=== PATIENT | male | born 1985 ===

== ENCOUNTER 2024-06-08 10:43 | Outpatient (AMB) | payer OTHER, SELFPAY ==
--- NOTE | 2024-06-08 12:27 | AM.OFFWIN_ITS ---
Intake Vital Signs 06/08/24 12:28 BMI Reason not done Patient refused/unable BP 122/76 Blood Pressure Location Lt brachial Position Sitting Pulse 70 Pulse Source Pulse Oximeter Temp 97.6 F Temp Source Oral Pulse Oximetry (%) 99 Intake Visit Reasons: [employer]IVE back pain (no [place]) Patient Tobacco Use Status: Never used Tobacco Allergies No Known Allergies Allergy (Verified 06/08/24 12:28) Do you need a note to return to daycare/school/sports/work: No HPI HPI Comments History of Present Illness Details 38 y/o male patient who presents to the walk in clinic with c/o Neck pain x 3 days. 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 Denies numbness or tingling. [facility] Medical History (Updated 06/08/24 @ 12:50 by Mary Jane Hui NP) Cervicalgia Social History Patient Tobacco Use Status: Never used Tobacco Review of Systems Const All systems reviewed & are unremarkable except as noted in HPI and below Physical Exam Vital Signs: Last Vital Signs Temp 97.6 F 06/08/24 12:28 Pulse 70 06/08/24 12:28 BP 122/76 06/08/24 12:28 Pulse Ox 99 06/08/24 12:28 Const General: cooperative and no acute distress Nutritional Appearance: well nourished Orientation/consciousness: patient oriented x3 Neck Neck: Yes normal visual inspection, Yes full ROM and Yes no lymphadenopathy Back/Spine/Pelvis Cervical Spine: cervical ROM normal, cervical muscular tenderness, pain with cervical ROM, cervical spasm and Cervical spine tenderness Neuro General: patient oriented x3, gait normal and moves all extremities Psych Speech and movement: Normal speech and movement present Assessment & Plan Assessment & Plan (1) Cervicalgia: Code(s): M54.2 - Cervicalgia Plan: NSAIDs for pain relief Ice/Hot Ordered muscle relaxants. Medications: New cyclobenzaprine 10 mg PO BEDTIME 14 tabs 0RF muscle spasm M54.2 - Cervicalgia lidocaine 5% leave on most painful area for up to 12 hrs 1 patch topical DAILY 30 ea 0RF M54.2 - Cervicalgia naproxen 500 mg PO BID 20 tabs 0RF Pain M54.2 - Cervicalgia Coding Level of Care Code New Pt Level 4 (97208) Diagnoses Cervicalgia M54.2 Time Spent (min) 20
[2024-06-08 12:28] VITALS: BP 122/76; PULSE 70; TEMP 36.4; O2SAT 99
== END 2024-06-08 13:11 | disposition home or self-care (01) ==
PROVIDERS: Visit Provider Nurse Practitioner Family
DX: M54.2 Cervicalgia (principal)

== ENCOUNTER → 2024-06-08 10:43 | Outpatient (BNVA) | payer OTHER, SELFPAY | DX: M54.2 Cervicalgia (principal) | CPT/HCPCS: 99202 ==